=== PATIENT | female | born 2000 | race Caucasian/White ===

== ENCOUNTER → 2024-08-05 | Outpatient (CLI) | payer BC ==
--- NOTE | 2024-08-06 07:59 | XR ---
EXAMINATION TYPE: XR knee complete LT DATE OF EXAM: 08/05/2024 3:35 PM COMPARISON: None CLINICAL INDICATION: Female, 23 years old with history of M25.562 PAIN IN LEFT KNEE; PHH, pain TECHNIQUE: 3 views. FINDINGS: Mild anterior infrapatellar soft tissue swelling. No significant joint effusion. Extensor mechanism a ppears intact. No acute fracture, subluxation, dislocation. IMPRESSION: There may be mild anterior infrapatellar soft tissue swelling. No acute osseous abnormality seen. [facility], Workstation: [facility], 08/06/2024 7:57 AM
== END | disposition home or self-care (01) ==
LOC: RADXRMAIN 15:19
PROVIDERS: ATTEND Internal Medicine
DX: M25.562 Pain in left knee (principal)